=== PATIENT | male | born 1995 | race Caucasian/White ===

== ENCOUNTER 2018-04-14 07:33 | Emergency (ER) | payer OTHER ==
[~2018-04-14] VITALS: Ht 182.9 cm; Wt 117.9 kg
[~2018-04-14 07:33] MED LIST: ALBU90OI INH; ALBU90OI61 INH; AMOX500 PO; AZIT250 PO; BENZ100A PO; CEFD300 PO; CEPH250A PO; CEPH500 PO; CODACE30 PO; Cephalexin500 MG PO; ERYT.5TO BOTHEYES; ERYT.5TO RIGHTEYE; Flonase 0.05% N16 GM; HYDACE5325 PO; IBUP400 PO; IBUP800 PO; Mucinex600 MG PO; NAPR375 PO; OTC COLD MEDS; PERM5TC TOP; PRED20 PO; PROCODE120 PO; Prednisone20 MG PO; RXNEOPOLHC AD; SULTRIDS PO; ZITHROMAX; Zyrtec10 MG PO
== END 2018-04-14 08:31 | disposition home or self-care (01) ==
LOC: ER 07:33
DX: S01.511D Laceration without foreign body of lip, subsequent encounter (principal); S01.21XD Laceration without foreign body of nose, subsequent encounter; V03.90XD Pedestrian on foot injured in collision with car, pick-up truck or van, unspecified whether traffic or nontraffic accident, subsequent encounter

== ENCOUNTER 2018-04-30 11:22 | Emergency (ER) | payer OTHER ==
[~2018-04-30] VITALS: Ht 182.9 cm; Wt 120.2 kg
[2018-04-30] MEDS ORDERED: HYDR1TAB94 PO (13:05)
[2018-04-30] MEDS ORDERED: IBUP800 PO (13:05)
== END 2018-04-30 13:40 | disposition home or self-care (01) ==
LOC: ER 11:22
DX: M25.461 Effusion, right knee (principal); V03.90XA Pedestrian on foot injured in collision with car, pick-up truck or van, unspecified whether traffic or nontraffic accident, initial encounter
CPT/HCPCS: 73564; 99283-25

== ENCOUNTER → 2018-07-07 | Outpatient (CLI) | payer OTHER ==
[~2018-07-07] MED LIST changes: +HYDR1TAB94 PO
== END | disposition home or self-care (01) ==
LOC: LAB 16:39 → LAB SHORT 16:39
DX: J02.9 Acute pharyngitis, unspecified (principal)
CPT/HCPCS: 87081

== ENCOUNTER 2018-07-22 10:41 | Day surgery (SDC) | payer OTHER ==
[~2018-07-22] VITALS: Ht 182.9 cm; Wt 122.8 kg
--- NOTE | 2018-07-22 15:43 | NUR ---
07/22/18 1543 Liya Arcos LATE ENTRY: 1520 PT STATES HIS PAIN IS TOLERABLE AND HE IS READY TO DISCHARGE HOME. DISCHARGE INSTRUCTIONS COMPLETE W/ GF AT CHAIRSIDE. NO QUESTIONS OR CONCERNS AT THIS TIME.
== END 2018-07-22 15:40 | disposition home or self-care (01) ==
LOC: ORSCSDS 10:41
PROVIDERS: Orthopaedic Surgery
PROC: 0SQC4ZZ Repair Right Knee Joint, Percutaneous Endoscopic Approach (ICD-10-PCS; principal; 2018-07-22 13:20)
DX: S83.281A Other tear of lateral meniscus, current injury, right knee, initial encounter (principal); S83.241A Other tear of medial meniscus, current injury, right knee, initial encounter; S83.521A Sprain of posterior cruciate ligament of right knee, initial encounter; I10 Essential (primary) hypertension; Z87.891 Personal history of nicotine dependence; E66.01 Morbid (severe) obesity due to excess calories; Z68.36 Body mass index [BMI] 36.0-36.9, adult
CPT/HCPCS: A9270-GY; C1713; J0171; J0690; J1100; J1885; J2250; J2405; J2704; J2795; J3010; J7120

== ENCOUNTER 2025-02-09 06:27 | Day surgery (SDC) | payer OTHER ==
[2025-02-09] VITALS (25 sets, daily range): BP systolic 113–180; BP diastolic 58–118
[~2025-02-09] VITALS: Ht 180.3 cm; Wt 120.2 kg
[2025-02-09] MEDS ORDERED: Benzocaine Oral Spray 0.5ML UD ONE (06:43)
[2025-02-09] MEDS ORDERED: NS 1,000 ML IV ONE (06:48)
[2025-02-09] MEDS ORDERED: Verapamil HCL 2.5 MG/ML 2ML Injection ONE (07:05)
[2025-02-09] MEDS ORDERED: NS 2,000 ML IV ONE (07:06)
[2025-02-09] MEDS ORDERED: Heparin Sodium 1000 Units/ML 10ML MDV ONE ×2 (07:06→09:32)
[2025-02-09] MEDS ORDERED: Nitroglycerin 2 MG/20 ML BTL ONE (07:06)
[2025-02-09] MEDS ORDERED: NS 250 ML IV ONE (07:06)
[2025-02-09] MEDS ORDERED: FentaNYL Citrate 50 MCG/ML 2 ML Injection ONE ×2 (07:58→09:08)
[2025-02-09] MEDS ORDERED: Midazolam HCl 1MG / ML 2ML Vial ONE ×2 (07:58→09:08)
--- NOTE | 2025-02-09 08:20 | NUR ---
PT TOLERATED JERRY WELL. 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
--- NOTE | 2025-02-09 10:20 | NUR ---
PT TO RECOVERY FROM LAB. PT A&O. BOTH RADIAL AND BRACHIAL SITES SOFT AND NON-TENDER PER PT. NO BLEEDING/HEMATOMA NOTED. PT AMBULATED TO RESTROOM W/O ASSISTANCE. PT BACK TO RECLINER. REPEAT V/S.
--- NOTE | 2025-02-09 10:48 | NUR ---
radial and brachial sites both soft and non-tender per pt. no bleeding/hematoma noted.
--- NOTE | 2025-02-09 11:22 | NUR ---
2cc removed from tr band. site soft and non-tender per pt. no bleeding/hematoma noted. pt ambulated to restroom w/o assistance. pt now back in recliner
--- NOTE | 2025-02-09 12:45 | NUR ---
PT DRESSED SELF WITHOUT PROBLEM, SITE UNCHANGED. TR BAND REMOVED, CLOTH DOT AND WRIST IMMOBILIZER PLACED; IV REMOVED-CANNULA INTACT.
--- NOTE | 2025-02-09 12:54 | NUR ---
PT AND RECEIVED DISCHARGE INSTRUCTIONS, MED LIST AND AFTER CARE INSTRUCTIONS; VERBALIZED GOOD UNDERSTANDING. PT AND LEFT FACILITY VIA W/C, CONDITION STABLE.
== END 2025-02-09 12:54 | disposition home or self-care (01) ==
LOC: MHTC 06:27
DX: I35.1 Nonrheumatic aortic (valve) insufficiency (principal)
CPT/HCPCS: 76937; 93312; 93325; 93456; 99152; 99153; A9270; C1769; C1887; C1894; J1644; J2250; J2704; J3010; J7030; J7050; Q9967